=== PATIENT | female | born 1955 | race Caucasian/White ===

== ENCOUNTER → 2018-06-30 14:00 | Outpatient (CLI) | payer OTHER, SELFPAY | PROVIDERS: Family Provider Physician Assistant; PCP Physician Assistant | DX: Z23 Encounter for immunization (principal) | CPT/HCPCS: 90471; 90686 ==

== ENCOUNTER → 2018-10-05 12:12 | Outpatient (CLI) | payer OTHER, SELFPAY ==
--- NOTE | 2018-10-05 | DI.MG.S_ITS ---
BILATERAL DIGITAL SCREENING MAMMOGRAM 3D/2D WITH CAD: 10/05/2018 CLINICAL: Routine screening. Family history of breast cancer. Comparison is made to exams dated: 08/22/2017 mammogram, 08/19/2016 mammogram, and 08/18/2015 mammogram - [facility]. There are scattered fibroglandular elements in both breasts. Current study was also evaluated with a Computer Aided Detection (CAD) system. No significant masses, calcifications, or other findings are seen in either breast. There has been no significant interval change. IMPRESSION: NEGATIVE There is no mammographic evidence of malignancy. A 1 year screening mammogram is recommended. This exam was interpreted at Station ID: [id number]. NOTE: For mammograms, a report in lay terms will be sent to the patient. Approximately 15% of breast malignancies will not be visualized mammographically. In the management of a palpable breast mass, a negative mammogram must not discourage biopsy of a clinically suspicious lesion. Electronically Signed By: Randy swenson/rah:10/05/2018 18:58:28 letter sent: Normal Exam ACR BI-RADS Category 1: Negative 3341F
== END ==
PROVIDERS: Family Provider Physician Assistant; PCP Physician Assistant; Visit Provider Physician Assistant
DX: Z12.31 Encounter for screening mammogram for malignant neoplasm of breast (principal)
CPT/HCPCS: 77063; 77067

== ENCOUNTER → 2019-07-03 13:58 | Outpatient (CLI) | payer OTHER, SELFPAY | PROVIDERS: PCP Physician Assistant | DX: Z23 Encounter for immunization (principal) | CPT/HCPCS: 90471; 90686 ==

== ENCOUNTER → 2019-08-16 12:08 | Outpatient (CLI) | payer OTHER, SELFPAY ==
--- NOTE | 2019-08-16 | DI.CT.S_ITS ---
PROCEDURE: CT HEAD/BRAIN WO CON INDICATIONS: Acute post-traumatic headache, intractable TECHNIQUE: Noncontrast 4.5 mm thick angled axial sections acquired from the foramen magnum to the vertex, with coronal and sagittal reformats. For radiation dose reduction, the following was used: automated exposure control, adjustment of mA and/or kV according to patient size. COMPARISON: None. FINDINGS: Image quality: Excellent. CSF spaces: Basal cisterns are patent. No extra-axial fluid collections. The ventricles are symmetric in size and shape. Brain: No intracranial bleeds or masses. There is cerebral volume loss for age, with resultant ventricular and sulcal prominence. There are periventricular and deep white matter chronic small vessel ischemic changes. There is intracranial internal carotid artery atherosclerosis. Skull and face: Calvarium and visualized facial bones appear intact, without suspicious lesions. Focal degenerative change can be seen involving the right mandibular condyle, as on series 3 image 1. Sinuses: Visualized sinuses and mastoids are clear. IMPRESSION: No acute intracranial hemorrhage is seen. No displaced calvarial fracture can be seen. No acute intracranial process is seen. Focal degenerative change is seen involving the right mandibular condyle. Dictated by: Del Tavera M.D. on 08/16/2019 at 11:45 Approved by: Del Tavera M.D. on 08/16/2019 at 11:46
== END ==
PROVIDERS: PCP Physician Assistant; Visit Provider Physician Assistant
DX: G44.311 Acute post-traumatic headache, intractable (principal)
CPT/HCPCS: 70450

== ENCOUNTER → 2019-10-15 14:25 | Outpatient (CLI) | payer OTHER, SELFPAY ==
--- NOTE | 2019-10-15 | DI.MG.S_ITS ---
BILATERAL DIGITAL SCREENING MAMMOGRAM 3D/2D WITH CAD: 10/15/2019 CLINICAL: Routine screening. Family history of breast cancer. Comparison is made to exams dated: 10/05/2018 mammogram, 08/22/2017 mammogram, and 08/19/2016 mammogram - [facility]. There are scattered fibroglandular elements in both breasts. Current study was also evaluated with a Computer Aided Detection (CAD) system. No significant masses, calcifications, or other findings are seen in either breast. There has been no significant interval change. IMPRESSION: NEGATIVE There is no mammographic evidence of malignancy. A 1 year screening mammogram is recommended. This exam was interpreted at Station ID: [id number]. NOTE: For mammograms, a report in lay terms will be sent to the patient. Approximately 15% of breast malignancies will not be visualized mammographically. In the management of a palpable breast mass, a negative mammogram must not discourage biopsy of a clinically suspicious lesion. Electronically Signed By: Muriel monge/rah:10/15/2019 15:26:57 letter sent: Normal Exam ACR BI-RADS Category 1: Negative 3341F
== END ==
PROVIDERS: PCP Physician Assistant; Visit Provider Physician Assistant
DX: Z12.31 Encounter for screening mammogram for malignant neoplasm of breast (principal); Z80.3 Family history of malignant neoplasm of breast
CPT/HCPCS: 77063; 77067

== ENCOUNTER → 2020-03-18 13:48 | Outpatient (CLI) | payer OTHER, SELFPAY ==
--- NOTE | 2020-03-18 | DI.RAD.S_ITS ---
PROCEDURE: XR TIBIA FIBULA RT 2V INDICATIONS: Pain in left leg TECHNIQUE: 2 views of the tibia and fibula were acquired. COMPARISON: None. FINDINGS: Bones: No fractures or dislocations. No suspicious bony lesions. Soft tissues: No suspicious soft tissue calcifications or masses. IMPRESSION: No fracture. If the patient's pain or other symptoms persist, consider further evaluation with MRI Dictated by: Ron Morrissey M.D. on 03/18/2020 at 15:47 Approved by: Ron Morrissey M.D. on 03/18/2020 at 15:48
--- NOTE | 2020-03-18 | DI.RAD.S_ITS ---
PROCEDURE: XR KNEE LT 3V INDICATIONS: Pain in left leg TECHNIQUE: 3 views of the knee were acquired. COMPARISON: None. FINDINGS: Bones: No fractures or dislocations. No suspicious bony lesions. Scattered degenerative subchondral sclerosis and spurring. Soft tissues: No joint effusion. No suspicious soft tissue calcifications. IMPRESSION: Chronic mild joint degeneration. If the patient's pain or other symptoms persist, consider further evaluation with MRI Dictated by: Ron Morrissey M.D. on 03/18/2020 at 15:48 Approved by: Ron Morrissey M.D. on 03/18/2020 at 15:49
== END ==
PROVIDERS: PCP Physician Assistant; Referring Provider Physician Assistant; Visit Provider Physician Assistant
DX: M79.605 Pain in left leg (principal); M17.12 Unilateral primary osteoarthritis, left knee
CPT/HCPCS: 73562; 73590

== ENCOUNTER → 2020-10-18 12:43 | Outpatient (CLI) | payer OTHER, SELFPAY ==
--- NOTE | 2020-10-18 | DI.MG.S_ITS ---
BILATERAL DIGITAL SCREENING MAMMOGRAM 3D/2D WITH CAD: 10/18/2020 CLINICAL: Routine screening. Family history of breast cancer. Comparison is made to exams dated: 10/15/2019 mammogram, 10/05/2018 mammogram, and 08/22/2017 mammogram - [facility]. There are scattered fibroglandular elements in both breasts. Current study was also evaluated with a Computer Aided Detection (CAD) system. No significant masses, calcifications, or other findings are seen in either breast. There has been no significant interval change. IMPRESSION: NEGATIVE There is no mammographic evidence of malignancy. A 1 year screening mammogram is recommended. This exam was interpreted at Station ID: [id number]. NOTE: For mammograms, a report in lay terms will be sent to the patient. Approximately 15% of breast malignancies will not be visualized mammographically. In the management of a palpable breast mass, a negative mammogram must not discourage biopsy of a clinically suspicious lesion. Electronically Signed By: Buster sanabria/rah:10/20/2020 10:31:08 letter sent: Normal Exam ACR BI-RADS Category 1: Negative 3341F
== END ==
PROVIDERS: PCP Physician Assistant; Referring Provider Physician Assistant; Visit Provider Physician Assistant
DX: Z12.31 Encounter for screening mammogram for malignant neoplasm of breast (principal); Z80.3 Family history of malignant neoplasm of breast
CPT/HCPCS: 77063; 77067

== ENCOUNTER → 2021-02-06 14:13 | Outpatient (CLI) | payer OTHER, SELFPAY ==
[2021-02-06 14:43] LABS: Add Manual Diff / Slide Review NO; Basophils Absolute Auto 0 /uL (0-100); Basophils Percent Auto 0.5 % (0-2); Eosinophils Absolute Auto 100 /uL (0-450); Eosinophils Percent Auto 1.4 % (2-4); Hematocrit 40.8 % (36-46); Lymphocytes Absolute Auto 1900 /uL (1100-4500); Mean Corpuscular HGB Conc 31.7 % (30-36); Mean Corpuscular Hemoglobin 28.5 PG (26-34); Mean Corpuscular Volume 89.8 fL (80-100); Monocytes Absolute Auto 600 /uL (0-900); Neutrophils Absolute Auto 2500 /uL (1500-7000); Neutrophils Percent Auto 49.1 % (50-75); Platelet Count 325 X10^3/uL (150-400); Red Blood Cell Count 4.55 X10^6/uL (4.0-5.2); Red Cell Distribution Width 14.1 % (11.6-14.8); White Blood Cell Count 5.1 X10^3/uL (4.5-11.0)
[2021-02-06 14:59] LABS: Alanine Aminotransferase 46 IU/L (<35); Albumin 4.4 g/dL (3.5-5.0); Albumin Globulin Ratio 1.3 (1.0-2.8); Alkaline Phosphatase 67 U/L (38-126); Aspartate Aminotransferase 38 IU/L (14-36); BUN Creatinine Ratio 19.3 (6-22); Bilirubin Total 0.5 mg/dL (0.2-1.3); Blood Urea Nitrogen 16 mg/dL (7-17); Calcium 9.7 mg/dL (8.4-10.2); Carbon Dioxide 27 mmol/L (22-32); Chloride 103 mmol/L (98-107); Cholesterol 247 mg/dL (140-199); Estimated Glomerular Filt Rate > 60.0 mL/min (>60); Globulin 3.5 g/dL (1.7-4.1); Glucose 94 mg/dL (80-110); HDL Cholesterol 72 mg/dL (40-60); HEMOLYSIS < 15 (0-50); LDL Cholesterol Calculated 163 mg/dL (<100); Potassium 4.2 mmol/L (3.4-5.1); Sodium 137 mmol/L (137-145); Total Protein 7.9 g/dL (6.3-8.2); Triglycerides 61 mg/dL (35-150)
[2021-02-06 15:28] LABS: TSH w/ Reflex to FT4 0.97 uIU/mL (0.47-4.68)
== END ==
PROVIDERS: PCP Physician Assistant; Referring Provider Physician Assistant; Visit Provider Physician Assistant
DX: E03.9 Hypothyroidism, unspecified (principal); E78.00 Pure hypercholesterolemia, unspecified
CPT/HCPCS: 36415; 80053; 80061; 84443; 85025

== ENCOUNTER → 2021-02-25 14:34 | Outpatient (CLI) | payer OTHER, SELFPAY ==
--- NOTE | 2021-02-25 14:38 | DI.RAD.S_ITS ---
PROCEDURE: XR HAND RT MIN 3V INDICATIONS: BI WRIST PAIN TECHNIQUE: 3 views of the hand(s) acquired. COMPARISON: None. FINDINGS: Bones: No acute fracture identified. 1st CMC and triscaphe joint degeneration. Lucency projects in the distal ulna. Diffuse interphalangeal osteoarthritis Soft tissues: No suspicious soft tissue calcifications. IMPRESSION: Lucency projecting in the distal ulna, possibly cyst versus erosion. Elsewhere, diffuse osteoarthritis as above Dictated by: Ron Morrissey M.D. on 02/25/2021 at 15:57 Approved by: Ron Morrissey M.D. on 02/25/2021 at 16:00
--- NOTE | 2021-02-25 14:38 | DI.RAD.S_ITS ---
PROCEDURE: XR HAND LT MIN 3V INDICATIONS: BI WRIST PAIN TECHNIQUE: 3 views of the hand(s) acquired. COMPARISON: None. FINDINGS: Bones: No acute fracture. Severe 1st CMC and triscaphe joint degeneration. Nonspecific lucencies seen at the base of the 1st metacarpal and the trapezium. Scattered degenerative subchondral sclerosis and spurring. 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 Lucencies at the base of the 1st metacarpal and the trapezium, which could represent cysts versus erosions. Nonspecific calcification at the DIP joint of the ring finger, potentially dystrophic versus tophus Dictated by: Ron Morrissey M.D. on 02/25/2021 at 16:01 Approved by: Ron Morrissey M.D. on 02/25/2021 at 16:04
--- NOTE | 2021-02-25 14:38 | DI.RAD.S_ITS ---
PROCEDURE: XR WRIST LT MIN 3V INDICATIONS: BI WRIST PAIN TECHNIQUE: 4 views of the wrist were acquired. COMPARISON: None. FINDINGS: Bones: No acute fracture identified. There is severe 1st CMC and triscaphe osteoarthritis. Marginal lucencies at the distal pole of the scaphoid, trapezium and base of the 1st metacarpal. Soft tissues: No suspicious soft tissue calcifications. IMPRESSION: Severe osteoarthritis. Marginal lucencies at the base of the 1st metacarpal trapezium and distal scaphoid, possibly cysts versus erosions. This could be further assessed with dedicated hand MRI arthritis protocol with and without contrast as clinically necessary Dictated by: Ron Morrissey M.D. on 02/25/2021 at 16:04 Approved by: Ron Morrissey M.D. on 02/25/2021 at 16:05
--- NOTE | 2021-02-25 14:38 | DI.RAD.S_ITS ---
PROCEDURE: XR WRIST RT MIN 3V INDICATIONS: BI WRIST PAIN TECHNIQUE: 4 views of the wrist were acquired. COMPARISON: None. FINDINGS: Bones: Addendum no acute fracture. 1st CMC and triscaphe joint degeneration. Lucency projecting in the distal ulna. Soft tissues: No suspicious soft tissue calcifications. IMPRESSION: Lucency projecting in the distal ulna, possibly cyst versus erosion. Diffuse osteoarthritis as above Dictated by: Ron Morrissey M.D. on 02/25/2021 at 16:00 Approved by: Ron Morrissey M.D. on 02/25/2021 at 16:01
== END ==
PROVIDERS: PCP Physician Assistant; Referring Provider Physician Assistant; Visit Provider Physician Assistant
DX: M25.531 Pain in right wrist (principal); M25.532 Pain in left wrist; M18.0 Bilateral primary osteoarthritis of first carpometacarpal joints; M19.032 Primary osteoarthritis, left wrist; M19.031 Primary osteoarthritis, right wrist
CPT/HCPCS: 73110; 73130

== ENCOUNTER → 2021-03-03 14:05 | Outpatient (CLI) | payer OTHER, SELFPAY | PROVIDERS: PCP Physician Assistant; Referring Provider Physician Assistant; Visit Provider Physician Assistant | DX: M85.852 Other specified disorders of bone density and structure, left thigh (principal); Z78.0 Asymptomatic menopausal state; E07.9 Disorder of thyroid, unspecified; Z82.62 Family history of osteoporosis | CPT/HCPCS: 77080 ==

== ENCOUNTER → 2021-03-25 09:43 | Outpatient (CLI) | payer OTHER, SELFPAY ==
[2021-03-25 10:34] LABS: COVID19 -Nasal RAPID Negative (Negative)
== END ==
PROVIDERS: PCP Physician Assistant; Visit Provider Surgery
DX: Z20.822 Contact with and (suspected) exposure to COVID-19 (principal)
CPT/HCPCS: 87635; C9803

== ENCOUNTER 2021-03-26 08:50 | Day surgery (SDC) | payer OTHER, SELFPAY ==
--- NOTE | 2021-03-26 | PATH_ITS ---
[facility] Accession Number: [id number] . 01 Material submitted: . body - POLYP @20CM . 02 Diagnosis: Polyp at 20 cm: Hyperplastic polyp. MRV 04/02/2021 1218 Local . 02 Electronically signed: . Diana Dominguez MD, Pathologist NPI- [id number] . 01 Gross description: . POLYP @20CM: Received in formalin is 1 fragment(s) of benavides, soft tissue measuring 0.3 x 0.3 x 0.2 cm submitted entirely in 1 cassette(s) /BERTA 03/27/2021 0709 Local . 02 Pathologist provided ICD-10: Z12.11, K63.5 . 02 CPT . 577151 Performed at: [address] [facility] [address] [id number] MD Randy Hopkins MD Phone: [phone] Performed at: 02 [facility] [address] [place], [place] [id number] MD Julissa Andrews MD Phone: [phone]
[2021-03-26] MEDS: SODIUM CHLORIDE 0.9% 1,000 ML 200 ML IV (09:14)
[2021-03-26 09:21] VITALS: BP 133/85; PULSE 74; RESP 13; TEMP 36.7; O2SAT 98
--- NOTE | 2021-03-26 10:17 | PM.HP.1 ---
History of Present Illness History of Present Illness Date Patient Seen: 03/26/21 Time Patient Seen: 10:17 [place] [facility] [place]: This is a 65-year-old woman who is here for surveillance colonoscopy. Her last colonoscopy was in 2013 and the patient loose she has some polyps found on that exam, and she was told to come back in 5 years. She denies any new symptoms of melena, hematochezia, unexplained abdominal pain, or explain weight loss. She denies any family history of colon polyps or colon cancers. ROS: Thirteen system review is otherwise negative other than as mentioned below and in HPI. PE: GENERAL: Well groomed and cooperative. Appears stated age. Answers questions promptly and appropriately. Vital signs noted. HENT: Normocephalic, atraumatic. Hearing intact. EYES: Conjunctiva pink, sclera white, no periorbital swelling. CARDIOVASCULAR: Regular rate. No pedal edema. RESPIRATORY: Non-tachypneic, breathing comfortably on room air. GASTROINTESTINAL: Abdomen soft and non-distended GENITALURINARY: No flank tenderness. MUSCULOSKELETAL: Equal tone and mass bilaterally. SKIN: Warm, dry, soft, appropriate color for ethnicity. No other lesions, rashes, or wounds. NEURO: Alert and Oriented X 3. No gross sensory deficits, or cognitive issues. PSYCH: Appropriate affect and mood. Patient History Family & Social History Social History: household members spouse,significant other Tobacco & Substance use: Smoking Status Former smoker alcohol intake current alcohol intake frequency 0-2 drinks per day Substance Use Type does not use Meds Home Medications and Allergies Home Medications Medication Instructions Recorded Confirmed Type bupropion HCl [Wellbutrin XL] 150 mg PO BID 03/26/21 History escitalopram oxalate 10 mg PO DAILY 03/26/21 03/26/21 History levothyroxine 50 mcg PO DAILY 03/26/21 03/26/21 History Allergies Allergy/AdvReac Type Severity Reaction Status Date / Time Sulfa (Sulfonamide Allergy Mild ITCHY Verified 03/26/21 09:14 Antibiotics) [SULFA (SULFONAMIDE ANTIBIOTICS)] Exam Vital Signs (past 8 hours): - 03/26/21 09:21 Temperature 98.1 F Pulse Rate 74 Respiratory Rate 13 Blood Pressure 133/85 Pulse Oximetry 98 Oxygen Delivery Method Room Air Assessment & Plan Assessment and plan (1) Personal history of colonic polyps: Status: Acute Assessment & Plan narrative: Risks and benefits of screening colonoscopy and possible polypectomy were discussed with the patient including risk of bleeding, perforation, need for additional procedures, risks of anesthesia. The patient desires to proceed with the colonoscopy procedure. COVID-19 COVID-19 status: Negative Result date/Date tested (Pos, Neg/Pending): 03/25/21 Time Spent With Patient Time with patient: 15-24 minutes Quality VTE Deep Vein Thrombosis/Pulmonary Embolism Present on Admission: No
--- NOTE | 2021-03-26 10:22 | P.OP.ENDO_ITS ---
Operative Date/Time/Diagnoses Date of procedure: 03/26/21 Time of procedure: 10:22 Pre-op diagnosis: History of polyp Post-op diagnosis: other (Tiny polyp) Procedure & Clinicians Study performed: Colonoscopy Procedural sedation performed by the endoscopist Polypectomy the Jumbo forceps at 20 cm Same procedure as scheduled: Yes Indications: History of polyp, colonoscopy recommended by primary doctor Surgeon: Li Márquez Procedure Notes SCOAP/Timeout: Performed Procedure in detail: The patient was brought to the room and placed in left lateral decubitus position with all bony prominences padded. A time-out was performed and then the patient was given procedural sedation starting with 4 mg of Versed and 100 mcg of fentanyl. An additional 1 mg of Versed and 50 micro g of fentanyl were given during the procedure. Vitals were monitored throughout the procedure and remained stable. Once adequately sedated, the procedure was begun. A rectal exam was performed revealing no abnormalities. The colonoscope was then introduced to the rectum and advanced to the cecum in the usual fashion. The cecum was identified by the appendiceal orifice, the mucosal tri- fold, and the ileocecal valve. The scope was then retracted while rotating side to side and examining each mucosal fold. A tiny polyp was found at 20 cm and removed with Jumbo forceps. At the conclusion of the procedure retroflexion was performed and small grade 1-2 internal hemorrhoids without stigmata of bleeding were seen. The scope was then withdrawn from the rectum the procedure was concluded. The patient tolerated the procedure well and was transferred to the PACU in stable condition. Scope withdrawal time: 7 Sedation minutes: 22 Findings: polyp Specimen(s): other (Single polyp) Complications: none Impression: Single benign-appearing polyp Post-procedure Recommendations: Colonscopy in 10 years (So long as pathology is non neoplastic) Follow up: as needed Disposition: PACU
[2021-03-26] MEDS: MIDAZOLAM 5 MG/5 ML VIAL IV (10:33)
[2021-03-26] MEDS: fentaNYL 250 MCG/5 ML INJ IV (10:37)
[2021-03-26 10:55] VITALS: BP 126/74; PULSE 69; RESP 15; TEMP 36.6; O2SAT 96
[2021-03-26 11:00] VITALS: BP 114/78; PULSE 85; RESP 14; O2SAT 95
[2021-03-26 11:05] VITALS: BP 114/78; PULSE 68; RESP 16; O2SAT 96
[2021-03-26 11:12] VITALS: BP 141/78; PULSE 68; RESP 16; O2SAT 98
== END 2021-03-26 11:23 | disposition home or self-care (01) ==
PROVIDERS: PCP Physician Assistant; Referring Provider Surgery; Visit Provider Surgery
PROC: 0DJD8ZZ Inspection of Lower Intestinal Tract, Via Natural or Artificial Opening Endoscopic (ICD-10-PCS; CPT 45378; principal; 2021-03-26 10:00)
DX: Z12.11 Encounter for screening for malignant neoplasm of colon (principal); Z86.010 Personal history of colon polyps; K64.0 First degree hemorrhoids; K63.5 Polyp of colon
CPT/HCPCS: 45380; 99152; J2250; J3010

== ENCOUNTER → 2021-04-17 11:46 | Outpatient (CLI) | payer OTHER, SELFPAY ==
--- NOTE | 2021-04-17 11:47 | DI.MRI.S_ITS ---
PROCEDURE: MR HAND RT WO/W CON INDICATIONS: ABNORMAL X-RAY OF BONE - RIGHT TECHNIQUE: Coronal and axial T1 spin echo and T2 fast spin echo with fat saturation. Post-contrast coronal and axial T1 spin echo with fat saturation images through the right hand and wrist. COMPARISON: None. FINDINGS: Image quality: Failure of fat suppression at the distal thumb.. Bones and cartilage: Marginal marrow signal changes present at the 4th metacarpal head, distal ulna, triquetral, capitate and scaphoid. There is mild enhancement associated with the foci seen in the 4th metacarpal head, distal ulna and capitate. There is overlying cortical loss in keeping with erosions by strict criteria. No osteitis is seen. Synovium: Enhancing synovitis is seen at the 1st CMC joint, and mildly at the 5th MCP joint. Soft tissues: No definite tenosynovitis. IMPRESSION: Subtle marrow signal changes in particular at the 4th metacarpal head, distal ulna demonstrating mild enhancement in keeping with erosions. These are technically age indeterminate. Additional marrow signal changes are technically indeterminate by strict criteria. Mild active synovitis at the 1st CMC joint and 5th MCP joint. Dictated by: Ron Morrissey M.D. on 04/17/2021 at 13:58 Approved by: Ron Morrissey M.D. on 04/17/2021 at 14:06
--- NOTE | 2021-04-17 11:47 | DI.MRI.S_ITS ---
PROCEDURE: MR HAND LT WO/W CON INDICATIONS: ABNORMAL X-RAY OF BONE - LEFT TECHNIQUE: Coronal and axial T1 spin echo and T2 fast spin echo with fat saturation. Post-contrast coronal and axial T1 spin echo with fat saturation images through the left hand and wrist. COMPARISON: [facility], CR, XR HAND LT MIN 3V, 02/25/2021, 14:39. FINDINGS: Image quality: Suboptimal as the distal ulna and radius is not included on examination. The proximal carpal row is only partially visualized. Bones and cartilage: 1st CMC joint degeneration. Mild osteitis at the base of the 1st metacarpal. There are subtle 1 mm or less marginal marrow signal changes present at the 2nd MCP joint, with T2 hyperintensity and faint enhancement although not well seen on all pulse sequences or orthogonal images. These findings are technically indeterminate by strict criteria. Synovium: 1st CMC synovitis and enhancement. Elsewhere, no additional synovitis seen. Soft tissues: No tenosynovitis is identified. IMPRESSION: Subtle marrow signal changes present at the 2nd MCP joint raising the possibility of very early or low-grade erosions however technically indeterminate by strict criteria. 1st CMC joint degeneration. A discrete erosion to correlate with the radiographic appearance is not well seen. There is mild osteitis at the base of the 1st metacarpal. 1st CMC synovitis. No tenosynovitis Dictated by: Ron Morrissey M.D. on 04/17/2021 at 15:35 Approved by: Ron Morrissey M.D. on 04/17/2021 at 15:46
== END ==
PROVIDERS: PCP Physician Assistant; Referring Provider Physician Assistant; Visit Provider Physician Assistant
DX: R93.7 Abnormal findings on diagnostic imaging of other parts of musculoskeletal system (principal); M79.641 Pain in right hand; M79.642 Pain in left hand; M65.842 Other synovitis and tenosynovitis, left hand; M65.841 Other synovitis and tenosynovitis, right hand; M18.12 Unilateral primary osteoarthritis of first carpometacarpal joint, left hand
CPT/HCPCS: 73220

== ENCOUNTER 2021-08-27 10:30 | Outpatient (RCR) | payer OTHER, SELFPAY ==
--- NOTE | 2021-08-03 15:44 | PT.OIE ---
Current Diagnoses Muscle weakness (generalized) (08/03/21) Abnormal posture (08/03/21) Strain of muscle(s) and tendon(s) of the rotator cuff of left shoulder, initial encounter (08/03/21) Visit Care Team Role Provider Type Carlee Greco PA-C Attending Provider Non-Staff Family Provider Primary Care Provider Referring Provider Specialty: Internal Medicine Address: [address] [place] [address], [facility] Email: [email or web address] Physical Therapy Initial Evaluation PT-OP-A Visit Information Start: 07/30/21 16:52 Freq: Status: Active Protocol: Document 08/03/21 14:34 [facility] (Rec: 08/03/21 15:43 [facility] [id number]) Out-Patient Physical Therapy Visit Information Visit Information Visit Type Initial Evaluation Visit Start Time 14:35 Visit Stop Time 15:20 Total Visit Minutes 45 Visit Number 1 Number of ENVIRONMENTAL WEB CRAWLER Visits 0 PT-OP-B Current Condition Start: 07/30/21 16:52 Freq: Status: Active Protocol: Document 08/03/21 14:34 [facility] (Rec: 08/03/21 15:43 [facility] [id number]) Current Condition History of Current Condition Onset Date 5 week Current Complaints L shoulder History of Current Condition Pt reports when she hurt herself she thought she was doomed. She saw primary who said she had tendonitis and encouraged her to rest it and ice it and it is now so much better. Pt reports she has a bowflex at home but hasn't done anything since. She injured her L arm about 5 weeks ago, she was trying to exercise her arms more and used arms more than legs w/ elliptical and it was sore the next day. She has done the elliptical but didn't make the L arm work as much. She feels like something deep and very slight doesn't feel right in L shoulder. Pt scared to return to activity d/t how excrutiating pain was initially. She has not golfed or done any shoulder work outs Treatment Goals Patient/Caregiver Goals Get a safe exercise program and be able to use bowflex, return to golf, be able to start yoga PT-OP-C Subjective Start: 07/30/21 16:52 Freq: Status: Active Protocol: Document 08/03/21 14:34 [facility] (Rec: 08/03/21 15:43 [facility] [id number]) Patient Questionnaires Quick Dash- Upper Extremity Quick Dash UE Score 34 OP-PT Pain Assessment Location L shoulder Pain Location Details post shoulder/shoulder blade Intensity 1 Scale Used Numeric (0 - 10) Description Aching,Tightness Description- Other Deep Frequency Intermittent Other Pain Aggravating Factors unsure since its been better PT-OP-F Manual Assessment Start: 07/30/21 16:52 Freq: Status: Active Protocol: Document 08/03/21 14:34 [facility] (Rec: 08/03/21 15:43 [facility] [id number]) Manual Assessments Soft Tissue Assessment Soft Tissue Mobility Assessment L UT, LS, teres, delt, infraspinatus tight and tender Joint Mobility Assessment Joint Mobility Assessment scap winging L>R PT-OP-J Posture/Palpation/Skin Start: 07/30/21 16:52 Freq: Status: Active Protocol: Document 08/03/21 14:34 [facility] (Rec: 08/03/21 15:43 [facility] [id number]) Posture Evaluation [facility] Postural Classification System [facility] Postural Classifications Posterior/Anterior Elbow Flexion Test 0 Comments Posture Comments R pelvic shear, L SB< L scap wing, fwd shoulders & head; during gait: pt flexes elbow instead of shoulder on L PT-OP-K Range of Motion Start: 07/30/21 16:52 Freq: Status: Active Protocol: Document 08/03/21 14:34 [facility] (Rec: 08/03/21 15:43 [facility] [id number]) Shoulder Goniometric Range of Motion Shoulder Right Active Flexion 165 Extension 74 Abduction 180 External Rotation at 90 degrees 107 Abduction External Rotation at 0 degrees Abduction 72 Internal Rotation Behind Back (text) T4 Left Active Flexion 154 Extension 60 Abduction 171 External Rotation at 90 degrees 106 Abduction External Rotation at 0 degrees Abduction 44 Internal Rotation Behind Back (text) T6 Comments feels tight; some discomfort at end range abd & IR PT-OP-L Special Tests Start: 07/30/21 16:52 Freq: Status: Active Protocol: Document 08/03/21 14:34 [facility] (Rec: 08/03/21 15:43 [facility] [id number]) Special Tests Shoulder Special Tests Speed's Biceps Test Results neg Neer Impingement Test Results neg Francis [place] Impingement Test Results pos L Empty Can Test Results positive for slight pain [place] Test Test Results neg Sulcus Test Results neg Drop Arm Rotator Cuff Test Results neg AC Joint Compression Test Results neg PT-OP-M Strength Start: 07/30/21 16:52 Freq: Status: Active Protocol: Document 08/03/21 14:34 [facility] (Rec: 08/03/21 15:43 [facility] [id number]) Shoulder Strength Shoulder Manual Muscle Testing Right Flexion 5 Normal Extension 5 Normal Abduction (C5) 5 Normal External Rotation 4+ Good+ Internal Rotation 5 Normal Horizontal Abduction 5 Normal Horizontal Adduction 5 Normal Left Flexion 4+ Good+ Extension 4+ Good+ Abduction (C5) 4+ Good+ External Rotation 4- Good- Internal Rotation 4+ Good+ Horizontal Abduction 4 Good Horizontal Adduction 4 Good Comments pain w/Habd PT-OP-Q Treatments Start: 07/30/21 16:52 Freq: Status: Active Protocol: Document 08/03/21 14:34 [facility] (Rec: 08/03/21 15:43 [facility] [id number]) Therapeutic Exercises Standing Exercises ER Side bilateral Equipment Used L2 Reps/Minutes 15 Comments towel at L side between side and elbow shoulder ext Side bilateral Equipment Used L2 (attempted 3 but too much) Reps/Minutes 20 Comments cues for posture & scap retraction. Self-Care/Home Management Treatment Education Other Education edu of shoulder anatomy & how shoulder joint moves PT-OP-T Assessment and Plan Start: 07/30/21 16:52 Freq: Status: Active Protocol: Document 08/03/21 14:34 [facility] (Rec: 08/03/21 15:43 [facility] [id number]) Physical Therapy Assessment Rehab Potential Rehabilitation Potential Excellent Evaluation Complexity Number of Personal Factors/Comorbidities 1-2 Number of Body Systems Impaired 4 or More Clinical Presentation at Evaluation Stable Impairments Impairments Activity Tolerance,Functional Activities,Functional Mobility ,Gait,Pain,Posture,ROM,Soft Tissue Mobility,Strength Goals activities Snf Goal (LTG) Pt will feel like she can do all heavy household activities , return to golf, do yoga and workout w/o inc pain. LTG Duration 10/03/21 ROM Snf Goal (LTG) Pt will have equal AROM of L shoulder as R w/o inc pain to allow pt to do all ADLs without discomfort LTG Duration 10/03/21 strength Short Term Goal (STG) Pt will be indep w/HEP utilizing home equipment and tbands to improve strength and functional ability. STG Duration 09/03/21 Hotel Front Desk Agent Goal (LTG) Pt will score at least 3/5 w/ EFT and 5/5 w/all UE strength testing to show imrpoved strength in order to return to typical activities w/o inc pain. Assessment Summary Assessment Pt presents with L shoulder pain w/ onset after excessive L shoulder force w/elliptical 5 weeks ago that improved w/MD recommendation of rest and icing. She still has some limits in ROM w/pain at end ranges and weakness on L that shows dec trunk stability w/ resistance applied to LUE. She appears to have irritated L supraspinatus based on positive francis diego impingement test and empty can testing. Pt would benefit from skilled PT to improve these functional deficits. Physical Therapy Plan Frequency and Duration Frequency of Treatment 1-2x/week Duration of Treatment 2 months Plan of Care Start Date 08/03/21 Plan of Care End Date 10/03/21 Therapeutic Interventions Therapeutic Interventions Aquatic Therapy,Gait Training, Home Exercise Program,Joint Mobilizations,Manual Therapy, Neuromuscular Re-education, Patient/Caregiver Education, Self-Care/Home Management,Soft Tissue Mobilization,Taping, Therapeutic Activities, Therapeutic Exercises Modalities Cold Pack/Ice Massage,Electric Stimulation,Hot Packs, Infrared Therapy,Iontophoresis ,Ultrasound Next Visit Focus/Plan Next Note Type Treatment Note Next Visit Plan look at picture of bowflex to help pt decide appropriate exercises for home use, Habd w /flex, prone scap exercises, manual to post shoulder STM & jt mobjanuary
--- NOTE | 2021-08-03 15:44 | PT.OPPOC ---
Physical, Occupational & Speech Therapy At [facility] Current Diagnoses Muscle weakness (generalized) (08/03/21) Abnormal posture (08/03/21) Strain of muscle(s) and tendon(s) of the rotator cuff of left shoulder, initial encounter (08/03/21) Visit Care Team Role Provider Type Carlee Greco PA-C Attending Provider Non-Staff Family Provider Primary Care Provider Referring Provider Specialty: Internal Medicine Address: [address] [place] [address], [id number] Email: [email or web address] Plan Of Care PT-OP-T Assessment and Plan Start: 07/30/21 16:52 Freq: Status: Active Protocol: Document 08/03/21 14:34 [facility] (Rec: 08/03/21 15:43 [facility] [id number]) Physical Therapy Assessment Rehab Potential Rehabilitation Potential Excellent Evaluation Complexity Number of Personal Factors/Comorbidities 1-2 Number of Body Systems Impaired 4 or More Clinical Presentation at Evaluation Stable Impairments Impairments Activity Tolerance,Functional Activities,Functional Mobility ,Gait,Pain,Posture,ROM,Soft Tissue Mobility,Strength Goals activities Penitentiary Goal (LTG) Pt will feel like she can do all heavy household activities , return to golf, do yoga and workout w/o inc pain. LTG Duration 10/03/21 ROM Latexer Goal (LTG) Pt will have equal AROM of L shoulder as R w/o inc pain to allow pt to do all ADLs without discomfort LTG Duration 10/03/21 strength Short Term Goal (STG) Pt will be indep w/HEP utilizing home equipment and tbands to improve strength and functional ability. STG Duration 09/03/21 Latexer Goal (LTG) Pt will score at least 3/5 w/ EFT and 5/5 w/all UE strength testing to show imrpoved strength in order to return to typical activities w/o inc pain. Assessment Summary Assessment Pt presents with L shoulder pain w/ onset after excessive L shoulder force w/elliptical 5 weeks ago that improved w/MD recommendation of rest and icing. She still has some limits in ROM w/pain at end ranges and weakness on L that shows dec trunk stability w/ resistance applied to LUE. She appears to have irritated L supraspinatus based on positive francis diego impingement test and empty can testing. Pt would benefit from skilled PT to improve these functional deficits. Physical Therapy Plan Frequency and Duration Frequency of Treatment 1-2x/week Duration of Treatment 2 months Plan of Care Start Date 08/03/21 Plan of Care End Date 10/03/21 Therapeutic Interventions Therapeutic Interventions Aquatic Therapy,Gait Training, Home Exercise Program,Joint Mobilizations,Manual Therapy, Neuromuscular Re-education, Patient/Caregiver Education, Self-Care/Home Management,Soft Tissue Mobilization,Taping, Therapeutic Activities, Therapeutic Exercises Modalities Cold Pack/Ice Massage,Electric Stimulation,Hot Packs, Infrared Therapy,Iontophoresis ,Ultrasound Next Visit Focus/Plan Next Note Type Treatment Note Next Visit Plan look at picture of bowflex to help pt decide appropriate exercises for home use, Habd w /flex, prone scap exercises, manual to post shoulder STM & jt mobs Plan of Care Dates Plan of Care Start Date 08/03/21 Plan of Care End Date 10/03/21 Electronically Signed by: Monica Garland, PT 08/03/21 [id number] Please Sign and Return: I have reviewed this Plan of Care and certify that the skilled therapy services above are required to meet the patient?s needs. Physician Signature Date Printed Name and Credentials Clinical Instructor Signature Printed Name and Credentials
--- NOTE | 2021-08-06 11:17 | PT.OTN ---
Current Diagnoses Muscle weakness (generalized) (08/06/21) Abnormal posture (08/06/21) Strain of muscle(s) and tendon(s) of the rotator cuff of left shoulder, initial encounter (08/06/21) Physical Therapy Treatment Note PT-OP-A Visit Information Start: 07/30/21 16:52 Freq: Status: Active Protocol: Document 08/06/21 10:27 [facility] (Rec: 08/06/21 11:17 [facility] [id number]) Out-Patient Physical Therapy Visit Information Visit Information Visit Type Treatment Note Visit Start Time 10:30 Visit Stop Time 11:12 Total Visit Minutes 42 Visit Number 2 Number of HEALTH PROMOTION SPECIALIST Visits 0 PT-OP-B Current Condition Start: 07/30/21 16:52 Freq: Status: Active Protocol: Document 08/03/21 14:34 [facility] (Rec: 08/03/21 15:43 [facility] [id number]) Current Condition History of Current Condition Onset Date 5 week Current Complaints L shoulder History of Current Condition Pt reports when she hurt herself she thought she was doomed. She saw primary who said she had tendonitis and encouraged her to rest it and ice it and it is now so much better. Pt reports she has a bowflex at home but hasn't done anything since. She injured her L arm about 5 weeks ago, she was trying to exercise her arms more and used arms more than legs w/ elliptical and it was sore the next day. She has done the elliptical but didn't make the L arm work as much. She feels like something deep and very slight doesn't feel right in L shoulder. Pt scared to return to activity d/t how excrutiating pain was initially. She has not golfed or done any shoulder work outs Treatment Goals Patient/Caregiver Goals Get a safe exercise program and be able to use bowflex, return to golf, be able to start yoga PT-OP-C Subjective Start: 07/30/21 16:52 Freq: Status: Active Protocol: Document 08/06/21 10:27 [facility] (Rec: 08/06/21 11:17 [facility] [id number]) OP-PT Subjective Patient Comments Patient Comments Pt reports compliance w/ exercises w/o issues PT-OP-F Manual Assessment Start: 07/30/21 16:52 Freq: Status: Active Protocol: Document 08/03/21 14:34 [facility] (Rec: 08/03/21 15:43 [facility] [id number]) Manual Assessments Soft Tissue Assessment Soft Tissue Mobility Assessment L UT, LS, teres, delt, infraspinatus tight and tender Joint Mobility Assessment Joint Mobility Assessment scap winging L>R PT-OP-J Posture/Palpation/Skin Start: 07/30/21 16:52 Freq: Status: Active Protocol: Document 08/03/21 14:34 [facility] (Rec: 08/03/21 15:43 [facility] [id number]) Posture Evaluation [facility] Postural Classification System [facility] Postural Classifications Posterior/Anterior Elbow Flexion Test 0 Comments Posture Comments R pelvic shear, L SB< L scap wing, fwd shoulders & head; during gait: pt flexes elbow instead of shoulder on L PT-OP-K Range of Motion Start: 07/30/21 16:52 Freq: Status: Active Protocol: Document 08/03/21 14:34 [facility] (Rec: 08/03/21 15:43 [facility] [id number]) Shoulder Goniometric Range of Motion Shoulder Right Active Flexion 165 Extension 74 Abduction 180 External Rotation at 90 degrees 107 Abduction External Rotation at 0 degrees Abduction 72 Internal Rotation Behind Back (text) T4 Left Active Flexion 154 Extension 60 Abduction 171 External Rotation at 90 degrees 106 Abduction External Rotation at 0 degrees Abduction 44 Internal Rotation Behind Back (text) T6 Comments feels tight; some discomfort at end range abd & IR PT-OP-L Special Tests Start: 07/30/21 16:52 Freq: Status: Active Protocol: Document 08/03/21 14:34 [facility] (Rec: 08/03/21 15:43 [facility] [id number]) Special Tests Shoulder Special Tests Speed's Biceps Test Results neg Neer Impingement Test Results neg Adams Demetrio Impingement Test Results pos L Empty Can Test Results positive for slight pain [place] Test Test Results neg Sulcus Test Results neg Drop Arm Rotator Cuff Test Results neg AC Joint Compression Test Results neg PT-OP-M Strength Start: 07/30/21 16:52 Freq: Status: Active Protocol: Document 08/03/21 14:34 [facility] (Rec: 08/03/21 15:43 [facility] [id number]) Shoulder Strength Shoulder Manual Muscle Testing Right Flexion 5 Normal Extension 5 Normal Abduction (C5) 5 Normal External Rotation 4+ Good+ Internal Rotation 5 Normal Horizontal Abduction 5 Normal Horizontal Adduction 5 Normal Left Flexion 4+ Good+ Extension 4+ Good+ Abduction (C5) 4+ Good+ External Rotation 4- Good- Internal Rotation 4+ Good+ Horizontal Abduction 4 Good Horizontal Adduction 4 Good Comments pain w/Habd PT-OP-Q Treatments Start: 07/30/21 16:52 Freq: Status: Active Protocol: Document 08/06/21 10:27 [facility] (Rec: 08/06/21 11:17 [facility] [id number]) Gym Equipment Cable Column (Body Solid) Triceps Details elbow ext we/ shoulder ext Resistance 1 Reps/Time 10 biceps Details curls Resistance 1 Reps/Time 10 flys Details 1. fwd 2. reverse Resistance 1 Reps/Time 8 ea Therapeutic Exercises Prone Exercises ER Prone Exercise Name 90/90 Side bilateral Reps/Minutes 8 Comments stopped d/t pt feeling mostly in biceps scaption Prone Exercise Name over tball Side bilateral Reps/Minutes 15 Habd Prone Exercise Name over tball Side bilateral Equipment Used 2# Reps/Minutes 15 Standing Exercises ER Side bilateral Equipment Used L2 Reps/Minutes 15 Comments towel at L side between side and elbow Manual Therapy Treatment Soft Tissue Mobilization lats Body Location R Mobilization Type Strumming,Sustained Pressure, Other Intensity/Depth Moderate Body Position Sidelying Comments w/c/r ant elev/post dep UT, LS, scalenes Body Location R Mobilization Type Rolling,Sustained Pressure Intensity/Depth Moderate Body Position Sidelying Comments w/c/r ant elev/post dep Joint Mobilizations AC Direction R gapping FM GH Direction R post FM PT-OP-T Assessment and Plan Start: 07/30/21 16:52 Freq: Status: Active Protocol: Document 08/06/21 10:27 [facility] (Rec: 08/06/21 11:17 [facility] [id number]) Physical Therapy Assessment Goals activities Padding Machine Operator Goal (LTG) Pt will feel like she can do all heavy household activities , return to golf, do yoga and workout w/o inc pain. LTG Duration 10/03/21 ROM Padding Machine Operator Goal (LTG) Pt will have equal AROM of L shoulder as R w/o inc pain to allow pt to do all ADLs without discomfort LTG Duration 10/03/21 strength Short Term Goal (STG) Pt will be indep w/HEP utilizing home equipment and tbands to improve strength and functional ability. STG Duration 09/03/21 Senior Care Goal (LTG) Pt will score at least 3/5 w/ EFT and 5/5 w/all UE strength testing to show imrpoved strength in order to return to typical activities w/o inc pain. Assessment Summary Assessment Pt had improved HAbd and ER ROM w/less discomfort and tightness after manual treatment. She did well with exercises with just cuieng for appropraite scap movement. Physical Therapy Plan Frequency and Duration Frequency of Treatment 1-2x/week Duration of Treatment 2 months Plan of Care Start Date 08/03/21 Plan of Care End Date 10/03/21 Next Visit Focus/Plan Next Note Type Treatment Note Next Visit Plan review exercises, manual for shoulder STM and jt jodi
--- NOTE | 2021-08-12 15:43 | PT.OTN ---
Current Diagnoses Muscle weakness (generalized) (08/12/21) Abnormal posture (08/12/21) Strain of muscle(s) and tendon(s) of the rotator cuff of left shoulder, initial encounter (08/12/21) Physical Therapy Treatment Note PT-OP-A Visit Information Start: 07/30/21 16:52 Freq: Status: Active Protocol: Document 08/12/21 13:47 [facility] (Rec: 08/12/21 14:34 [facility] [id number]) Out-Patient Physical Therapy Visit Information Visit Information Visit Type Treatment Note Visit Start Time 13:48 Visit Stop Time 14:28 Total Visit Minutes 40 Visit Number 3 Number of HEALTH PROGRAM SPECIALIST Visits 0 PT-OP-B Current Condition Start: 07/30/21 16:52 Freq: Status: Active Protocol: Document 08/03/21 14:34 [facility] (Rec: 08/03/21 15:43 [facility] [id number]) Current Condition History of Current Condition Onset Date 5 week Current Complaints L shoulder History of Current Condition Pt reports when she hurt herself she thought she was doomed. She saw primary who said she had tendonitis and encouraged her to rest it and ice it and it is now so much better. Pt reports she has a bowflex at home but hasn't done anything since. She injured her L arm about 5 weeks ago, she was trying to exercise her arms more and used arms more than legs w/ elliptical and it was sore the next day. She has done the elliptical but didn't make the L arm work as much. She feels like something deep and very slight doesn't feel right in L shoulder. Pt scared to return to activity d/t how excrutiating pain was initially. She has not golfed or done any shoulder work outs Treatment Goals Patient/Caregiver Goals Get a safe exercise program and be able to use bowflex, return to golf, be able to start yoga PT-OP-C Subjective Start: 07/30/21 16:52 Freq: Status: Active Protocol: Document 08/12/21 13:47 [facility] (Rec: 08/12/21 14:34 [facility] [id number]) OP-PT Subjective Patient Comments Patient Comments Pt reports she did well on bowflex exercises PT-OP-F Manual Assessment Start: 07/30/21 16:52 Freq: Status: Active Protocol: Document 08/03/21 14:34 [facility] (Rec: 08/03/21 15:43 [facility] [id number]) Manual Assessments Soft Tissue Assessment Soft Tissue Mobility Assessment L UT, LS, teres, delt, infraspinatus tight and tender Joint Mobility Assessment Joint Mobility Assessment scap winging L>R PT-OP-J Posture/Palpation/Skin Start: 07/30/21 16:52 Freq: Status: Active Protocol: Document 08/03/21 14:34 [facility] (Rec: 08/03/21 15:43 [facility] [id number]) Posture Evaluation [facility] Postural Classification System [facility] Postural Classifications Posterior/Anterior Elbow Flexion Test 0 Comments Posture Comments R pelvic shear, L SB< L scap wing, fwd shoulders & head; during gait: pt flexes elbow instead of shoulder on L PT-OP-K Range of Motion Start: 07/30/21 16:52 Freq: Status: Active Protocol: Document 08/03/21 14:34 [facility] (Rec: 08/03/21 15:43 [facility] [id number]) Shoulder Goniometric Range of Motion Shoulder Right Active Flexion 165 Extension 74 Abduction 180 External Rotation at 90 degrees 107 Abduction External Rotation at 0 degrees Abduction 72 Internal Rotation Behind Back (text) T4 Left Active Flexion 154 Extension 60 Abduction 171 External Rotation at 90 degrees 106 Abduction External Rotation at 0 degrees Abduction 44 Internal Rotation Behind Back (text) T6 Comments feels tight; some discomfort at end range abd & IR PT-OP-L Special Tests Start: 07/30/21 16:52 Freq: Status: Active Protocol: Document 08/03/21 14:34 [facility] (Rec: 08/03/21 15:43 [facility] [id number]) Special Tests Shoulder Special Tests Speed's Biceps Test Results neg Neer Impingement Test Results neg Adams Demetrio Impingement Test Results pos L Empty Can Test Results positive for slight pain [place] Test Test Results neg Sulcus Test Results neg Drop Arm Rotator Cuff Test Results neg AC Joint Compression Test Results neg PT-OP-M Strength Start: 07/30/21 16:52 Freq: Status: Active Protocol: Document 08/03/21 14:34 [facility] (Rec: 08/03/21 15:43 [facility] [id number]) Shoulder Strength Shoulder Manual Muscle Testing Right Flexion 5 Normal Extension 5 Normal Abduction (C5) 5 Normal External Rotation 4+ Good+ Internal Rotation 5 Normal Horizontal Abduction 5 Normal Horizontal Adduction 5 Normal Left Flexion 4+ Good+ Extension 4+ Good+ Abduction (C5) 4+ Good+ External Rotation 4- Good- Internal Rotation 4+ Good+ Horizontal Abduction 4 Good Horizontal Adduction 4 Good Comments pain w/Habd PT-OP-Q Treatments Start: 07/30/21 16:52 Freq: Status: Active Protocol: Document 08/12/21 13:47 [facility] (Rec: 08/12/21 14:34 [facility] [id number]) Gym Equipment Cable Column (Body Solid) squat row Resistance 2 Reps/Time 12 Triceps Details elbow ext we/ shoulder ext Resistance 1 Reps/Time 10 biceps Details curls Resistance 1 Reps/Time 10 flys Details 1. fwd 2. reverse Resistance 1 Reps/Time 10 ea Therapeutic Exercises Prone Exercises plank Prone Exercise Name forearm and feet Side bilateral Reps/Minutes 30 sec x2 Sidelying Exercises plank Sidelying Exercise Name forearm and knees Side bilateral Reps/Minutes 30 sec ea Manual Therapy Treatment Soft Tissue Mobilization pecs Body Location R Mobilization Type Sustained Pressure lats Body Location R lats & teres Mobilization Type Strumming,Sustained Pressure, Other Intensity/Depth Moderate Body Position Sidelying Comments w/c/r ant elev/post dep Joint Mobilizations AC Direction R gapping FM GH Comments 1. post FM w/Hadd 2. ant FM w/ER PT-OP-T Assessment and Plan Start: 07/30/21 16:52 Freq: Status: Active Protocol: Document 08/12/21 13:47 [facility] (Rec: 08/12/21 14:34 [facility] [id number]) Physical Therapy Assessment Goals activities Home Assessment Nurse Goal (LTG) Pt will feel like she can do all heavy household activities , return to golf, do yoga and workout w/o inc pain. LTG Duration 10/03/21 ROM Correction Goal (LTG) Pt will have equal AROM of L shoulder as R w/o inc pain to allow pt to do all ADLs without discomfort LTG Duration 10/03/21 strength Short Term Goal (STG) Pt will be indep w/HEP utilizing home equipment and tbands to improve strength and functional ability. STG Duration 09/03/21 Home Assessment Nurse Goal (LTG) Pt will score at least 3/5 w/ EFT and 5/5 w/all UE strength testing to show imrpoved strength in order to return to typical activities w/o inc pain. Assessment Summary Assessment Pt had improved ROM to full range w/o pain after manual ( started w/limit in Habd, flex & 90/90 ER)/ She did well with exercises on wts and start of planks Physical Therapy Plan Frequency and Duration Frequency of Treatment 1-2x/week Duration of Treatment 2 months Plan of Care Start Date 08/03/21 Plan of Care End Date 10/03/21 Next Visit Focus/Plan Next Note Type Treatment Note Next Visit Plan review planks, manuala s needed
--- NOTE | 2021-08-27 11:33 | PT.OTN ---
Current Diagnoses Muscle weakness (generalized) (08/27/21) Abnormal posture (08/27/21) Strain of muscle(s) and tendon(s) of the rotator cuff of left shoulder, initial encounter (08/27/21) Physical Therapy Treatment Note PT-OP-A Visit Information Start: 07/30/21 16:52 Freq: Status: Active Protocol: Document 08/27/21 10:43 [facility] (Rec: 08/27/21 11:33 [facility] [id number]) Out-Patient Physical Therapy Visit Information Visit Information Visit Type Discharge Summary Visit Start Time 10:36 Visit Stop Time 11:14 Total Visit Minutes 38 Visit Number 4 Number of HOUSEKEEPER Visits 0 PT-OP-B Current Condition Start: 07/30/21 16:52 Freq: Status: Active Protocol: Document 08/03/21 14:34 [facility] (Rec: 08/03/21 15:43 [facility] [id number]) Current Condition History of Current Condition Onset Date 5 week Current Complaints L shoulder History of Current Condition Pt reports when she hurt herself she thought she was doomed. She saw primary who said she had tendonitis and encouraged her to rest it and ice it and it is now so much better. Pt reports she has a bowflex at home but hasn't done anything since. She injured her L arm about 5 weeks ago, she was trying to exercise her arms more and used arms more than legs w/ elliptical and it was sore the next day. She has done the elliptical but didn't make the L arm work as much. She feels like something deep and very slight doesn't feel right in L shoulder. Pt scared to return to activity d/t how excrutiating pain was initially. She has not golfed or done any shoulder work outs Treatment Goals Patient/Caregiver Goals Get a safe exercise program and be able to use bowflex, return to golf, be able to start yoga PT-OP-C Subjective Start: 07/30/21 16:52 Freq: Status: Active Protocol: Document 08/27/21 10:43 [facility] (Rec: 08/27/21 11:33 [facility] [id number]) OP-PT Subjective Patient Comments Patient Comments Pt reports no issues with shoulder. Added resistance w/ bowflex Patient Reported Progress Improving PT-OP-F Manual Assessment Start: 07/30/21 16:52 Freq: Status: Active Protocol: Document 08/03/21 14:34 [facility] (Rec: 08/03/21 15:43 [facility] [id number]) Manual Assessments Soft Tissue Assessment Soft Tissue Mobility Assessment L UT, LS, teres, delt, infraspinatus tight and tender Joint Mobility Assessment Joint Mobility Assessment scap winging L>R PT-OP-J Posture/Palpation/Skin Start: 07/30/21 16:52 Freq: Status: Active Protocol: Document 08/03/21 14:34 [facility] (Rec: 08/03/21 15:43 [facility] [id number]) Posture Evaluation [facility] Postural Classification System [facility] Postural Classifications Posterior/Anterior Elbow Flexion Test 0 Comments Posture Comments R pelvic shear, L SB< L scap wing, fwd shoulders & head; during gait: pt flexes elbow instead of shoulder on L PT-OP-K Range of Motion Start: 07/30/21 16:52 Freq: Status: Active Protocol: Document 08/27/21 10:43 [facility] (Rec: 08/27/21 11:33 [facility] [id number]) Shoulder Goniometric Range of Motion Shoulder Right Active Flexion 165 Extension 74 Abduction 180 External Rotation at 90 degrees 107 Abduction External Rotation at 0 degrees Abduction 72 Internal Rotation Behind Back (text) T4 Left Active Flexion 163 Extension 69 Abduction 180 External Rotation at 90 degrees 106 Abduction External Rotation at 0 degrees Abduction 73 Internal Rotation Behind Back (text) T3 PT-OP-L Special Tests Start: 07/30/21 16:52 Freq: Status: Active Protocol: Document 08/03/21 14:34 [facility] (Rec: 08/03/21 15:43 [facility] [id number]) Special Tests Shoulder Special Tests Speed's Biceps Test Results neg Neer Impingement Test Results neg Adams Demetrio Impingement Test Results pos L Empty Can Test Results positive for slight pain [place] Test Test Results neg Sulcus Test Results neg Drop Arm Rotator Cuff Test Results neg AC Joint Compression Test Results neg PT-OP-M Strength Start: 07/30/21 16:52 Freq: Status: Active Protocol: Document 08/27/21 10:43 [facility] (Rec: 08/27/21 11:33 [facility] [id number]) Shoulder Strength Shoulder Manual Muscle Testing Right Flexion 5 Normal Extension 5 Normal Abduction (C5) 5 Normal External Rotation 4+ Good+ Internal Rotation 5 Normal Horizontal Abduction 5 Normal Horizontal Adduction 5 Normal Left Flexion 5 Normal Extension 5 Normal Abduction (C5) 5 Normal External Rotation 5 Normal Internal Rotation 5 Normal Horizontal Abduction 5 Normal Horizontal Adduction 5 Normal PT-OP-Q Treatments Start: 07/30/21 16:52 Freq: Status: Active Protocol: Document 08/27/21 10:43 [facility] (Rec: 08/27/21 11:33 [facility] [id number]) Therapeutic Exercises Prone Exercises plank Prone Exercise Name forearm and feet Side bilateral Reps/Minutes 30 sec x2 Comments w/hip ext alt small range Sidelying Exercises roll & reach Side bilateral Reps/Minutes 10 plank Sidelying Exercise Name 1. forearm and feet 2. forearm and knees w/clamshell Side bilateral Reps/Minutes 30 sec ea Standing Exercises stretch Standing Exercise Name 1. arms straight pec stretch 2 . 90/90 ER in corner Side bilateral Reps/Minutes 30 sec wall posture Standing Exercise Name wall roll up w/B shoulder ext then 90/90 Habd Side bilateral Reps/Minutes 4 min Self-Care/Home Management Treatment Education Patient Education Home Exercise Program,Posture Other Education edu for work on upright posture & importance. Edu for cont strengthening and stretch as needed. PT-OP-T Assessment and Plan Start: 07/30/21 16:52 Freq: Status: Active Protocol: Document 08/27/21 10:43 [facility] (Rec: 08/27/21 11:33 [facility] [id number]) Physical Therapy Assessment Goals activities Group Counselor Goal (LTG) Pt will feel like she can do all heavy household activities , return to golf, do yoga and workout w/o inc pain. LTG Duration achieved-has not golfed but was able to swing club ROM Chcf Goal (LTG) Pt will have equal AROM of L shoulder as R w/o inc pain to allow pt to do all ADLs without discomfort LTG Duration achieved 08/27 strength Short Term Goal (STG) Pt will be indep w/HEP utilizing home equipment and tbands to improve strength and functional ability. STG Duration achieved Group Counselor Goal (LTG) Pt will score at least 3/5 w/ EFT and 5/5 w/all UE strength testing to show imrpoved strength in order to return to typical activities w/o inc pain. LTG Duration achieved 08/27 Assessment Summary Assessment Pt has made excellent progress with thearpy and is no longer having any L shoulder pain and does not have any limit in UE strength on L or limit of ROM. Pt is indep w/HEP for strength and was also given exercises for stretching also. She has done all typical activities except golf but was able to swing a golf club today w/o inc pain. Physical Therapy Plan Discharge Physical Therapy Discharge Reasons Goals Met
== END 2021-11-10 09:44 ==
LOC: PHYS 10:30
PROVIDERS: Family Provider Physician Assistant; PCP Physician Assistant; Referring Provider Physician Assistant; Visit Provider Physician Assistant
DX: S46.012A Strain of muscle(s) and tendon(s) of the rotator cuff of left shoulder, initial encounter (principal); R29.3 Abnormal posture; M62.81 Muscle weakness (generalized)
CPT/HCPCS: 97110; 97140; 97162; 97535

== ENCOUNTER → 2022-12-28 14:46 | Outpatient (CLI) | payer OTHER, SELFPAY ==
--- NOTE | 2022-12-28 | DI.MG.S_ITS ---
BILATERAL DIGITAL SCREENING MAMMOGRAM 3D/2D WITH CAD: 12/28/2022 CLINICAL: Routine screening. Family history of breast cancer. Comparison is made to exams dated: 10/18/2020 mammogram, 10/15/2019 mammogram, and 10/05/2018 mammogram - [facility]. There are scattered areas of fibroglandular density in both breasts (category b / 25%-50% glandular tissue). Current study was also evaluated with a Computer Aided Detection (CAD) system. There are benign post operative findings in the left breast. No significant masses, calcifications, or other findings are seen in either breast. There has been no significant interval change. IMPRESSION: BENIGN There is no mammographic evidence of malignancy. A 1 year screening mammogram is recommended. Based on the Tyrer Cuzick model (a risk assessment model) the patient's lifetime risk is 6.9% and her 10 year risk is 4.1%. According to the ACR, ACS, and NCCN guidelines, an annual breast MRI exam along with mammogram is recommended if the patient's lifetime risk is 20% or greater. This exam was interpreted at Station ID: [id number]. NOTE: For mammograms, a report in lay terms will be sent to the patient. Approximately 15% of breast malignancies will not be visualized mammographically. In the management of a palpable breast mass, a negative mammogram must not discourage biopsy of a clinically suspicious lesion. Electronically Signed By: Muriel monge/rah:12/29/2022 09:28:51 letter sent: Normal Exam ACR BI-RADS Category 2: Benign Finding(s) 3342F
== END ==
PROVIDERS: Family Provider Physician Assistant; PCP Physician Assistant; Referring Provider Physician Assistant; Visit Provider Physician Assistant
DX: Z12.31 Encounter for screening mammogram for malignant neoplasm of breast (principal); Z80.3 Family history of malignant neoplasm of breast
CPT/HCPCS: 77063; 77067

== ENCOUNTER → 2023-11-13 13:29 | Outpatient (CLI) | payer OTHER, SELFPAY | PROVIDERS: Family Provider Physician Assistant; PCP Physician Assistant; Visit Provider Nurse Practitioner Family | DX: R39.15 Urgency of urination (principal); R39.9 Unspecified symptoms and signs involving the genitourinary system | CPT/HCPCS: 87077; 87086; 87186 ==

== ENCOUNTER → 2023-12-11 10:39 | Outpatient (CLI) | payer OTHER, SELFPAY | PROVIDERS: Family Provider Physician Assistant; PCP Physician Assistant; Visit Provider Nurse Practitioner Family | DX: R10.9 Unspecified abdominal pain (principal); R30.0 Dysuria | CPT/HCPCS: 87077; 87086; 87186 ==

== ENCOUNTER → 2024-01-25 15:35 | Outpatient (CLI) | payer MEDICARE, SELFPAY ==
--- NOTE | 2024-01-25 15:36 | DI.MG.S_ITS ---
BILATERAL DIGITAL SCREENING MAMMOGRAM 3D/2D WITH CAD: 01/25/2024 CLINICAL: Routine screening. Family history of breast cancer. Comparison is made to exams dated: 12/28/2022 mammogram, 10/18/2020 mammogram, and 10/15/2019 mammogram - [facility]. There are scattered areas of fibroglandular density in both breasts (category b / 25%-50% glandular tissue). Current study was also evaluated with a Computer Aided Detection (CAD) system. There are benign post operative findings in the left breast. No significant masses, calcifications, or other findings are seen in either breast. There has been no significant interval change. IMPRESSION: BENIGN There is no mammographic evidence of malignancy. A 1 year screening mammogram is recommended. Based on the Tyrer Cuzick model (a risk assessment model) the patient's lifetime risk is 6.5% and her 10 year risk is 4.1%. According to the ACR, ACS, and NCCN guidelines, an annual breast MRI exam along with mammogram is recommended if the patient's lifetime risk is 20% or greater. This exam was interpreted at Station ID: [id number]. NOTE: For mammograms, a report in lay terms will be sent to the patient. Approximately 15% of breast malignancies will not be visualized mammographically. In the management of a palpable breast mass, a negative mammogram must not discourage biopsy of a clinically suspicious lesion. Electronically Signed By: Polina Kee M.D., Ph.D. zee/rah:01/26/2024 23:07:32 letter sent: Normal Exam ACR BI-RADS Category 2: Benign Finding(s) 3342F
== END ==
LOC: MAMMO 15:35
PROVIDERS: Family Provider Physician Assistant; PCP Physician Assistant; Referring Provider Physician Assistant; Visit Provider Physician Assistant
DX: Z12.31 Encounter for screening mammogram for malignant neoplasm of breast (principal); Z80.3 Family history of malignant neoplasm of breast; R92.323 Mammographic fibroglandular density, bilateral breasts
CPT/HCPCS: 77063; 77067

== ENCOUNTER → 2024-06-01 16:35 | Outpatient (CLI) | payer MEDICARE, SELFPAY | PROVIDERS: Family Provider Physician Assistant; PCP Physician Assistant; Visit Provider Nurse Practitioner Family | DX: N94.89 Other specified conditions associated with female genital organs and menstrual cycle (principal); R30.0 Dysuria | CPT/HCPCS: 87086; 87210 ==

== ENCOUNTER → 2025-01-07 11:47 | Outpatient (CLI) | payer MEDICARE, SELFPAY ==
--- NOTE | 2025-01-07 11:52 | DI.US.S_ITS ---
PROCEDURE: US EXTREMITY NONVASC LOWER LT INDICATIONS: Left leg pain, strain of lt hamstring muscle TECHNIQUE: Real-time scanning was performed of the left thigh, with image documentation. COMPARISON: None. FINDINGS: Ultrasound examination of posterior left thigh at the level of left gluteus muscle shows complex appearing fluid collection posterior to the left gluteus muscle measures 4 x 0.5 x 4.1 cm and 4.3 x 0.5 x 3.8 cm in size. No internal vascularity is seen. IMPRESSION: Complex appearing fluid collections in deep left gluteal soft tissue as described above which may represent soft tissue hematoma secondary to hamstring muscle tear suggest clinical correlation. MRI of left thigh can be done for further evaluation if clinically indicated. Dictated by: Justin Husain M.D. on 01/07/2025 at 15:55 Approved by: Justin Husain M.D. on 01/07/2025 at 15:57
== END ==
PROVIDERS: Family Provider Physician Assistant; PCP Physician Assistant; Referring Provider Physician Assistant; Visit Provider Physician Assistant
DX: M79.605 Pain in left leg (principal); S76.312A Strain of muscle, fascia and tendon of the posterior muscle group at thigh level, left thigh, initial encounter; X58.XXXA Exposure to other specified factors, initial encounter
CPT/HCPCS: 76882

== ENCOUNTER → 2025-01-14 16:48 | Outpatient (CLI) | payer MEDICARE, SELFPAY ==
--- NOTE | 2025-01-14 | DI.MRI.S_ITS ---
PROCEDURE: MR FEMUR LT WO CON INDICATIONS: LT LEG PAIN / SUSPECTED HAMSTRING TEAR TECHNIQUE: Noncontrast coronal and sagittal T1 spin echo and STIR; axial T1 spin echo and T2 fast spin echo with fat saturation through the left femur COMPARISON: [facility], , EXTREMITY NONVASC LOWER LT, 01/07/2025, 12:03. FINDINGS: Image quality: Excellent. Bones: Susceptibility artifact about the right knee. The marrow signal the right and the left femur are otherwise unremarkable. Soft tissues: The left iliopsoas, and adductor tendons are unremarkable. Moderate tendinosis of the semimembranosus tendon origin, with low-grade tear. The conjoined tendon of the hamstring and is unremarkable. No full-thickness rupture of the hamstring tendons. No surrounding hematoma. The left gluteal minimus and medius are remarkable. Muscles are normal in signal. Small popliteal cyst, partially visualized. Popliteal vasculature is unremarkable. The sciatic nerve in the left thigh is unremarkable. IMPRESSION: 1. Moderate tendinosis of the left semimembranosus tendon origin at the ischial tuberosity, with low-grade tear. No full-thickness rupture of the hamstring tendon. Dictated by: Luh Jacob M.D. on 01/15/2025 at 9:54 Approved by: Luh Jacob M.D. on 01/15/2025 at 10:04
== END ==
PROVIDERS: Family Provider Physician Assistant; PCP Physician Assistant; Referring Provider Physician Assistant; Visit Provider Physician Assistant
DX: S76.312A Strain of muscle, fascia and tendon of the posterior muscle group at thigh level, left thigh, initial encounter (principal); M79.605 Pain in left leg; R93.6 Abnormal findings on diagnostic imaging of limbs; X58.XXXA Exposure to other specified factors, initial encounter
CPT/HCPCS: 73718

== ENCOUNTER → 2025-02-06 11:51 | Outpatient (CLI) | payer MEDICARE, SELFPAY ==
--- NOTE | 2025-02-06 11:53 | DI.MG.S_ITS ---
MM screening mammo BI: 02/06/2025. BI-RADS: 1 CLINICAL: 69-year old female for bilateral screening mammogram. Tyrer-Cuzick lifetime risk of 6.7%. No personal or first-degree family history of breast cancer. Current reported family history of breast cancer: maternal aunt and maternal uncle's daughter. The patient had a prior left breast biopsy. PRIOR EXAMS 01/25/2024, 12/28/2022, 10/18/2020, 10/15/2019. MAMMOGRAPHY TECHNIQUE: 2D and 3D (tomosynthesis) digital mammographic views obtained, with additional images as needed for full coverage. Current study was also evaluated with a Computer Aided Detection (CAD) system. DENSITY B. There are scattered areas of fibroglandular density. MAMMOGRAPHY FINDINGS Bilateral: No suspicious mass, asymmetry, microcalcification, or other abnormality seen. No significant change from comparison. IMPRESSION: * No evidence of malignancy. RECOMMENDATIONS Bilateral * Annual screening mammography. OVERALL ASSESSMENT CATEGORY BI-RADS-1: Negative. The [employer] recommends annual screening mammography beginning at age 40 for women with average risk of breast cancer. ELECTRONICALLY SIGNED: Buster Nguyen M.D. on 02/06/2025 at 02:23:14 PM PT Interpreting Station ID: [id number]
== END ==
PROVIDERS: Family Provider Physician Assistant; PCP Physician Assistant; Referring Provider Physician Assistant; Visit Provider Physician Assistant
DX: Z12.31 Encounter for screening mammogram for malignant neoplasm of breast (principal); Z80.3 Family history of malignant neoplasm of breast
CPT/HCPCS: 77063; 77067

== ENCOUNTER → 2025-09-09 17:29 | Outpatient (CLI) | payer MEDICARE, SELFPAY ==
--- NOTE | 2025-09-09 17:32 | DI.RAD.S_ITS ---
PROCEDURE: XR KNEE LT 3V INDICATIONS: PAIN TECHNIQUE: 4 views of the knee were acquired. [facility] 2+ VIEWS LEFT, 03/05/2025, 8:23[facility], CR, XR KNEE LT 3V, 03/18/2020, 13:05. FINDINGS: Bones: On the sunrise view, a linear lucency noted in the medial patella. Tricompartment joint space narrowing most severely affects the patellofemoral and medial compartment. Soft tissues: Small joint effusion. Mild soft tissue swelling noted. IMPRESSION: Sagittally oriented lucency in the medial patella could represent a nondisplaced fracture. Joint effusion. Soft tissue swelling. Correlate with symptoms and presentation. Dictated by: Chani Reed M.D. on 09/10/2025 at 22:04 Approved by: Chani Reed M.D. on 09/10/2025 at 22:06
== END ==
PROVIDERS: Family Provider Physician Assistant; PCP Physician Assistant; Referring Provider Physician Assistant; Visit Provider Physician Assistant
DX: M25.562 Pain in left knee (principal); M25.462 Effusion, left knee; M79.89 Other specified soft tissue disorders
CPT/HCPCS: 73562